=== PATIENT | female | born 1970 | race African-American/Black ===

== ENCOUNTER 2018-01-29 10:55 | Emergency (ER) | payer BC, OTHER ==
[~2018-01-29] VITALS: Ht 170.2 cm; Wt 71.2 kg
--- NOTE | ~2018-01-29 | EKG ---
[place] [address] [facility] [place] [address] ELECTROCARDIOGRAM REPORT Name: LUIS LOUISN Room #: PRE [facility].R.#: [id number] Admission: Attend Phys: Discharge: Date of : 68 Report #: [id number] THIS REPORT FOR: //name// [facility] ED Test Date: 2018-01-29 Test Time: 10:58:52 Pat Name: LUIS LOUIS Department: Room: Gender: F Visitor Services Assistant: : 1970 Requested By: Ye Slater Order Number: [id number] MD: Juancarlos Campbell Measurements Intervals [place] Rate: 76 P: 45 AK: 175 QRS: 14 QRSD: 94 T: 26 QT: 424 QTc: 477 Interpretive Statements Sinus rhythm Borderline prolonged QT interval No previous ECG available for comparison Electronically Signed On 01-29-2018 11:06:14 CERTIFIED WELLNESS PROGRAM COORDINATOR by Juancarlos Campbell [email or web address] <ELECTRONICALLY SIGNED> By: Juancarlos Campbell MD, [facility] 01/29/18 1106 [id number] Juancarlos Campbell MD, FACC /EPI
[~2018-01-29 10:55] MED LIST: BACTRIM DS TAB1 EACH PO; CELEXA 10 MG TA10 M1 PO; CORTISPORIN OTI10 M2 OTIC; DOXYCYCLINE 10100 MG PO; HCTZ; IBUPROFEN 600600 M1 PO; LISINOPRIL; LISINOPRIL10 MG PO; METFORMIN; MOBIC15 MG PO; NAPROSYN250 MG PO; NEURONTIN 400400 M1 PO; NORCO 5-325 TA1 EACH PO; PENICILLIN VK500 M1 PO; PRENATAL TABLE1 EAC3 PO; TRAMADOL; ZOFRAN ODT4 MG PO; ZPAK PO
[2018-01-29] MEDS ORDERED: MOBIC7.5 MG PO (11:01)
[2018-01-29] MEDS ORDERED: GLIPIZIDE 10 MG10 MG PO (11:02)
[2018-01-29] MEDS ORDERED: LISINOPRIL20 MG PO (11:04)
[2018-01-29] MEDS ORDERED: SERTRALINE HCL50 MG PO (11:04)
[2018-01-29 11:19] LABS: HEMOGLOBIN 12.2 gm/dL (12.0-15.0); MCH 32.2 pg (26.0-34.0); MCHC 34.8 g/dL (28.0-37.0); MCV 92.7 fL (80.0-100.0); PLATELET COUNT 366 thou/uL (150-400); RBC 3.77 mil/uL (4.20-5.00); RDW 14.1 % (10.5-14.5); WBC 9.1 thou/uL (4.0-11.0)
[2018-01-29 11:27] LABS: ANION GAP 7 mmol/L (7-16); BUN 20 mg/dL (7-18); CALCIUM 9.6 mg/dL (8.5-10.1); CHLORIDE 100 mmol/L (98-107); CO2 29 mmol/L (21-32); CREATININE 1.1 mg/dL (0.6-1.0); GLUCOSE 162 mg/dL (74-106); POTASSIUM 3.1 mmol/L (3.5-5.1); SODIUM 136 mmol/L (136-145)
[2018-01-29 11:35] LABS: ALBUMIN 3.4 g/dL (3.4-5.0); LIPASE 114 U/L (73-393); SGOT 18 U/L (15-37); SGPT 26 U/L (30-65); TOTAL BILIRUBIN 0.2 mg/dL (<0.1-1.0); TOTAL PROTEIN 7.4 g/dL (6.4-8.2); TROPONIN-I <0.06 ng/mL (<0.06)
[2018-01-29 11:48] LABS: ABSOLUTE NEUTROPHILS 5.3 thou/uL (1.4-8.2); PLATELET ESTIMATE NORMAL
[2018-01-29 12:26] LABS: URINE BILIRUBIN NEGATIVE (Negative); URINE BLOOD NEGATIVE (Negative); URINE CLARITY CLEAR; URINE COLOR YELLOW; URINE GLUCOSE-RANDOM* NEGATIVE (Negative); URINE KETONES NEGATIVE (Negative); URINE NITRITE-REFLEX NEGATIVE (Negative); URINE PROTEIN (DIPSTICK) NEGATIVE (Negative); URINE SPECIFIC GRAVITY <= 1.005 (1.005-1.035); URINE UROBILINOGEN 0.2 E.U./dl (0.2-1.0)
[2018-01-29 12:28] LABS: URINE LEUKOCYTES-REFLEX TRACE (Negative)
[2018-01-29] MEDS ORDERED: SENNA8.6 MG PO (12:57)
[2018-01-29] MEDS ORDERED: NORCO 5-325 TA1 EACH PO (12:57)
[2018-01-29] MEDS ORDERED: CITRATE OF MAG296 ML PO (12:57)
[2018-01-29 13:02] VITALS: BP 120/69
[2018-01-29] MEDS ORDERED: GLUCOPHAGE XR500 MG PO (13:17)
== END 2018-01-29 13:13 | disposition home or self-care (01) ==
LOC: ER 10:55
PROVIDERS: Physician Assistant
DX: K59.00 Constipation, unspecified (principal); R07.89 Other chest pain; F17.210 Nicotine dependence, cigarettes, uncomplicated; I10 Essential (primary) hypertension; F32.9 Major depressive disorder, single episode, unspecified; F41.9 Anxiety disorder, unspecified; E11.40 Type 2 diabetes mellitus with diabetic neuropathy, unspecified

== ENCOUNTER 2018-12-05 01:03 | Emergency (ER) | payer BC, OTHER ==
[~2018-12-05] VITALS: Ht 170.2 cm; Wt 68.0 kg
[~2018-12-05 01:03] MED LIST changes: +CITRATE OF MAG296 ML PO; +GLIPIZIDE 10 MG10 MG PO; +GLUCOPHAGE XR500 MG PO; +LISINOPRIL20 MG PO; +MOBIC7.5 MG PO; +SENNA8.6 MG PO; +SERTRALINE HCL50 MG PO
[2018-12-05] MEDS ORDERED: TESSALON PERLE100 MG PO (02:16)
[2018-12-05 02:39] VITALS: BP 155/91
== END 2018-12-05 02:41 | disposition home or self-care (01) ==
LOC: ER 01:03
DX: G62.9 Polyneuropathy, unspecified (principal); M79.651 Pain in right thigh; M79.652 Pain in left thigh; B34.9 Viral infection, unspecified; E11.9 Type 2 diabetes mellitus without complications; I10 Essential (primary) hypertension; F32.9 Major depressive disorder, single episode, unspecified; F41.9 Anxiety disorder, unspecified; F17.210 Nicotine dependence, cigarettes, uncomplicated

== ENCOUNTER 2019-07-09 21:54 | Emergency (ER) | payer BC, OTHER ==
[2019-07-09 21:54] VITALS: BP 140/89
[~2019-07-09 21:54] MED LIST changes: +TESSALON PERLE100 MG PO
== END 2019-07-09 22:00 | disposition left against medical advice (07) ==
LOC: ER 21:54
DX: R73.9 Hyperglycemia, unspecified (principal); Z53.21 Procedure and treatment not carried out due to patient leaving prior to being seen by health care provider

== ENCOUNTER 2020-09-19 02:32 | Emergency (ER) | payer OTHER ==
[~2020-09-19] VITALS: Ht 170.2 cm; Wt 113.4 kg
--- NOTE | ~2020-09-19 | EMS ---
[facility] [address] [place] [address] EMS Patient Care Report Name: LUIS LOUIS Room #: DEP SHAWN Watts#: [id number] Admission: 09/19/20 Attend Phys: Discharge: 09/19/20 Date of : 68 Report #: [id number] THIS REPORT FOR: //name// Report Transmitted: 09/20/2020 08:38 EMS Care Summary [place], [place]/[facility] Incident [id number] @ 09/19/2020 02:07 Incident Location [address] [place] [address] Patient LUIS LOUIS Female, 50 Years 1970 Patient Address [address] [place] [address] Patient History Diabetes,Hypertension (HTN), Patient Allergies No known allergies, Patient Medications None Reported, Chief Complaint ANKLE LAC Disposition Transported No Lights/[place] Dispatch Reason Hemorrhage/Laceration Transported To [facility] Narrative ARRIVED TO FIND PT WALKING TOWARD EMS. PT REPORTS DROPPING 2 GLASS BOTTLES WHICH SOMEHOW CUT HER LEG. PT SON WRAPPED LAC WITH A TOWEL, BLEEDING CONTROLLED. PT PLACED ON COT, SECURED WITH STRAPS X2, LOADD WITHOUT INCIDENT. ETOH ON BOARD. ALS ASSESSMENT VITALS OBTAINED. [address] [address] EMS Patient Care Report Name: LUIS LOUIS Room #: DEP Mac#: [id number] Admission: 09/19/20 Attend Phys: Discharge: 09/19/20 Date of : 68 Report #: [id number] ENROUTE, PT CONDITION UNCHANGED. ARRIVED. PT TAKEN INSIDE ON COT TO ER 2. PT MOVED TO BED RAILS RAISED X2. REPORT GIVEN TO NURSE, PT CARE TRANSFERRED. Initial Vitals @02:16P: 98,R: 16,BP: 186/117,Pain: 6/10,GCS: 14,CO: 11,SpO2: 98,Revised Trauma: 12, @02:25P: 85,R: 16,BP: 158/76,Pain: 6/10,GCS: 15,CO: 7,SpO2: 99,Revised Trauma: 12, Assessments @02:13MENTAL:Event Oriented,Person Oriented,Time Oriented,Place Oriented,SKIN:HEENT:Head/Face: No Abnormalities,Neck/Airway: No Abnormalities,LUNG SOUNDS:General: No Abnormalities,Left Upper: No Abnormalities,Right Upper: No Abnormalities,Left Lower: No Abnormalities,Right Lower: No Abnormalities,ABDOMEN:General: No Abnormalities,Left Upper: No Abnormalities,Right Upper: No Abnormalities,Left Lower: No Abnormalities,Right Lower: No Abnormalities,PELVIS//GI:No Abnormalities,EXTREMITIES:Right Leg: Other,Left Arm: No Abnormalities,Right Arm: No Abnormalities,Left Leg: No Abnormalities,PULSE:Radial: 2+ Normal,NEURO:No Abnormalities, Impression Injury of Ankle Procedures @02:13ALS AssessmentResponse: [email or web address]: ImprovedSucceeded Timeline DRAMA CRITIC,Bandaging,Response: ImprovedSucceeded, 02:05,Call Received 02:05,Dispatch Notified 02:07,Dispatched 02:08,En Route 02:12,On Scene 02:13,At Patient 02:13,ALS Assessment,Response: UnchangedSucceeded, 02:16,BP: 186/117 M,PULSE: 98,RR: 16 R,SPO2: 98 Ox,ETCO2: ,BG: ,PAIN: 6,GCS: 14, 02:18,Depart Scene 02:25,BP: 158/76 M,PULSE: 85,RR: 16 R,SPO2: 99 Ox,ETCO2: ,BG: ,PAIN: 6,GCS: 15, 02:28,At Destination 02:40,Call Closed [facility] [address] [place] [address] EMS Patient Care Report Name: LUIS LOUIS [facility] [id number] Admission: 09/19/20 Attend Phys: Discharge: 09/19/20 Date of : 68 Report #: [id number] Disclaimer [email or web address] Copyright 2020 [employer] This EMS Care Summary contains data elements from the applicable legal record (which may be displayed differently). It is designed to provide pertinent information for the following purposes: continuity of care, clinical quality, and state data reporting. The complete legal record is available to ED staff and administrators of the receiving hospital in [employer] Patient Tracker. All data is provided "as is."
[2020-09-19] MEDS ORDERED: NAPROSYN500 M1 PO (03:14)
[2020-09-19 03:28] VITALS: BP 153/94
== END 2020-09-19 04:01 | disposition home or self-care (01) ==
LOC: ER 02:32
DX: S91.011A Laceration without foreign body, right ankle, initial encounter (principal); E11.40 Type 2 diabetes mellitus with diabetic neuropathy, unspecified; I10 Essential (primary) hypertension; F41.9 Anxiety disorder, unspecified; F17.210 Nicotine dependence, cigarettes, uncomplicated; Z79.899 Other long term (current) drug therapy; W25.XXXA Contact with sharp glass, initial encounter; Y93.89 Activity, other specified; Y92.89 Other specified places as the place of occurrence of the external cause; Y99.8 Other external cause status